=== PATIENT | female | born 1965 | race Caucasian/White ===

== ENCOUNTER 2021-03-18 07:40 | Outpatient (CLI) | payer OTHER ==
[~2021-03-18 07:40] MED LIST: MOTRIN800 MG PO
== END 2021-03-18 07:53 | disposition home or self-care (01) ==
LOC: TOM 07:40
PROVIDERS: ATTEND Urology
DX: R31.21 Asymptomatic microscopic hematuria (principal)

== ENCOUNTER 2021-03-18 08:39 | Outpatient (CLI) | payer OTHER | END 2021-03-18 08:41 | disposition home or self-care (01) | LOC: LAB 08:39 | PROVIDERS: ATTEND Radiology Diagnostic Radiology | DX: N18.9 Chronic kidney disease, unspecified (principal) ==

== ENCOUNTER 2022-12-01 07:44 | Outpatient (CLI) | payer OTHER | END 2022-12-01 07:46 | disposition home or self-care (01) | LOC: LAB 07:44 | PROVIDERS: ATTEND Internal Medicine Gastroenterology | DX: J20.9 Acute bronchitis, unspecified (principal); R05.9 Cough, unspecified; R06.02 Shortness of breath; Z20.822 Contact with and (suspected) exposure to COVID-19 ==

== ENCOUNTER → 2024-04-28 07:01 | Outpatient (CLI) | payer OTHER | END | disposition home or self-care (01) | LOC: NUCLEAR 06:00 | PROVIDERS: ATTEND Specialist | DX: M25.59 Pain in other specified joint (principal); M17.11 Unilateral primary osteoarthritis, right knee; M23.221 Derangement of posterior horn of medial meniscus due to old tear or injury, right knee ==